=== PATIENT | male | born 1950 | race Caucasian/White ===

== ENCOUNTER 2021-01-19 19:29 | Outpatient (CLI) | payer MEDICARE | END 2021-01-19 19:30 | disposition home or self-care (01) | LOC: COV 19:29 | PROVIDERS: ATTEND Family Medicine | DX: U07.1 COVID-19 (principal) ==

== ENCOUNTER 2022-04-27 15:42 | Outpatient (CLI) | payer MEDICARE ==
--- NOTE | 2022-04-27 17:17 | XRAY Report ---
PROCEDURE: Elbow 3 View RT INDICATIONS: RIGHT ELBOW PAIN TECHNIQUE: 5 views of the elbow were acquired. COMPARISON: None FINDINGS: Bones: No fractures or dislocations. No suspicious bony lesions. Soft tissues: Equivocal anterior fat pad sign. No suspicious soft tissue calcifications. IMPRESSION: 1. No fracture is identified. 2. Equivocal anterior fat pad sign is probably within normal limits, however could represent a small joint effusion and occult fracture. Reviewed by: Sae Brown on 04/27/2022 5:15 PM [facility] Approved by: Sae Brown on 04/27/2022 5:15 PM [facility] Station ID: [id number]
== END 2022-04-27 15:43 | disposition home or self-care (01) ==
LOC: DI.WOS 15:42
PROVIDERS: ATTEND Physician Assistant Surgical
DX: M25.521 Pain in right elbow (principal)

== ENCOUNTER 2022-05-04 08:00 | Outpatient (CLI) | payer MEDICARE ==
--- NOTE | 2022-05-04 23:04 | XRAY Report ---
PROCEDURE: Elbow 3 View RT INDICATIONS: LEFT ELBOW PAIN TECHNIQUE: 3 views of the elbow were acquired. COMPARISON: 04/27/2022 and 04/21/2022 FINDINGS: Bones: No visible displaced fractures or dislocations. No suspicious bony lesions. There is spurri ng at the triceps tendon insertion. Enthesopathy at the common flexor and common extensor tendon orig ins. Soft tissues: Anterior fat pad sign is redemonstrating suggesting a joint effusion. There are a few s mall osseous fragments in the soft tissues lateral to the lateral epicondyle. Avulsion fracture or te ndon injury may be present. IMPRESSION: 1. Anterior fat pad sign redemonstrated suggesting internal derangement. 2. Possible avulsion fractures along the lateral elbow. 3. Consider MRI for further evaluation given the persistence of joint effusion. Reviewed by: Yolanda Lemus MD on 05/04/2022 11:03 PM PST Approved by: Yolanda Lemus MD on 05/04/2022 11:03 PM PST Station ID: [id number]
== END 2022-05-04 23:59 | disposition home or self-care (01) ==
LOC: DI.WOS 08:00
PROVIDERS: ATTEND Physician Assistant Surgical
DX: M25.521 Pain in right elbow (principal); M25.421 Effusion, right elbow

== ENCOUNTER 2023-06-07 09:30 | Outpatient (CLI) | payer MEDICARE ==
--- NOTE | 2023-06-07 11:31 | Ultrasound Report ---
PROCEDURE: Aorta Screening INDICATIONS: SCREENING FOR CARDIOVASCULAR DISEASE TECHNIQUE: Real time scanning was performed of the aorta and iliac arteries, with image documentatio n. COMPARISON: None. FINDINGS: Aorta: Proximal aortic diameter measures 2.8 x 3.3 cm. Mid-aorta measures 2.5 x 2.4 cm. Distal aor tic diameter is 3.1 x 2.8 cm. Iliac arteries: Right common iliac artery measures 1.4 x 1 cm. Left common iliac artery measures 1. 2 x 1 cm. IMPRESSION: Aorta measures up to 3.3 cm at the proximal aspect and 3.1 cm at the distal aspect. Consider 3 year f ollow-up. Recommended intervals for follow-up imaging of ectatic aortas and abdominal aortic aneurysms, per ACR consensus guidelines: 2.5-2.9 cm: 5 years 3.0-3.4 cm: 3 years 3.5-3.9 cm: 2 years 4.0-4.4 cm: 1 year 4.5-4.9 cm: 6 months + endovascular referral 5.0-5.5 cm: 3-6 months + endovascular referral Reviewed by: Rey López MD on 06/07/2023 11:30 AM PST Approved by: Rey López MD on 06/07/2023 11:30 AM PST Station ID: [id number]
== END 2023-06-07 09:31 | disposition home or self-care (01) ==
LOC: DI 09:30
PROVIDERS: ATTEND Student in an Organized Health Care Education/Training Program
DX: Z13.6 Encounter for screening for cardiovascular disorders (principal)